=== PATIENT | male | born 2000 | race Caucasian/White ===

== ENCOUNTER 2024-03-12 20:09 | Emergency (ER) | payer SELFPAY ==
[2024-03-12] MEDS: Amoxicillin/Clavulanate K 875-125 MG Tab PO ONE (20:43)
[2024-03-12] MEDS: Diphtheria,Pertussis(Acell),Tetanus Vaccine 0.5 ML Syringe IM ONE (20:43)
== END 2024-03-12 21:20 | disposition home or self-care (01) ==
LOC: MW.ED 20:09
DX: S61.051A Open bite of right thumb without damage to nail, initial encounter (principal); F17.210 Nicotine dependence, cigarettes, uncomplicated; Z23 Encounter for immunization; W55.81XA Bitten by other mammals, initial encounter; Z79.899 Other long term (current) drug therapy
CPT/HCPCS: 90471; 90715; 99283; A9270